=== PATIENT | female | born 1995 | race Caucasian/White ===

== ENCOUNTER 2020-12-27 18:39 | Emergency (ER) | payer OTHER, SELFPAY ==
[2020-12-27 19:01] VITALS: BP 126/86; PULSE 120; RESP 12; TEMP 37.4; O2SAT 100
--- NOTE | 2020-12-27 19:11 | PC.NURSE ---
pt. given Your Rights and Choices For a Medical Forensic exam.
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
--- NOTE | 2020-12-27 19:45 | PC.NURSE ---
Call for help advocate arrived. Pt declined call for help advocate at this time.
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
[2020-12-27] MEDS: metroNIDAZOLE 250 MG TABLET 2000 MG PO (21:08)
[2020-12-27] MEDS: cefTRIAXone 1 GM VIAL 0.5 GM IM (21:08)
[2020-12-27] MEDS: DOXYCYCLINE HYCLATE 100 MG TABLET PO (21:08)
[2020-12-27] MEDS: LIDOCAINE HCL 1% LOCAL INJ 20 ML VIAL 2.1 ML XX (21:08)
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
[2020-12-27 21:35] VITALS: BP 133/86; PULSE 108; RESP 18; O2SAT 99
[2020-12-27 21:41] LABS: Amphetamine Screen Urine Negative (Negative); Barbiturate Screen Urine Negative (Negative); Benzodiazepines Screen Urine Negative (Negative); Cannabinoid Screen Urine Negative (Negative); Cocaine Screen Urine Negative (Negative); Methadone Screen Urine Negative (Negative); Opiate Screen Urine Negative (Negative); Phencyclidine Screen Urine Negative (Negative)
[2020-12-27 22:01] VITALS: BP 122/84; PULSE 108; RESP 17; O2SAT 100
== END 2020-12-27 22:01 | disposition home or self-care (01) ==
PROVIDERS: Emergency Provider Emergency Medicine
DX: T74.21XA Adult sexual abuse, confirmed, initial encounter (principal); Y07.59 Other non-family member, perpetrator of maltreatment and neglect
CPT/HCPCS: 80307; 96372; 99285; A9270; J0696

== ENCOUNTER 2021-03-31 12:32 | Emergency (ER) | payer BC, SELFPAY ==
--- NOTE | 2021-03-31 12:42 | ED.FEMALEGU ---
HPI - Female Genitourinary General Chief complaint: Urogenital-Female Stated complaint: uti complaints Time Seen by Provider: 03/31/21 12:42 Source: patient and RN notes reviewed History of Present Illness HPI Narrative: Patient is a 26-year-old female who presents the urgent care with complaints of a possible UTI. Patient states that it started this morning with urinary frequency and pain with urination. Patient states that she has urinary tract infections often and has seen a urologist in the past without diagnosis. Patient did take her last dose of Azo at approximately 3 AM. Denies of any fever, chills, nausea, vomiting. Reports her last UTI being approximately 8 or 9 months ago. No other acute complaints. No acute distress noted. Patient aware of the plan of care. Some parts of this dictation were generated by voice recognition software and may contain typographical and/or grammatical inaccuracies. Related Data Home Medications Medication Instructions Recorded Confirmed norethindrone-e.estradiol-iron 1 tablet PO DAILY 03/31/21 03/31/21 [Minastrin 24 Fe] Allergies Allergy/AdvReac Type Severity Reaction Status Date / Time No Known Allergies Allergy Verified 03/31/21 12:57 Review of Systems Review of Systems: CONSTITUTIONAL: Denies fever, chills, or sweats. EYES: Denies visual changes, redness, or discharge. ENT: Denies rhinorrhea, congestion, sore throat, or otalgia. CARDIOVASCULAR: Denies chest pain, palpitations, or edema. RESPIRATORY: Denies cough or dyspnea. GASTROINTESTINAL: Denies abdominal pain, nausea, vomiting, or diarrhea. GENITOURINARY: Reports of dysuria and urinary frequency SKIN: Denies rash or itching. MUSCULOSKELETAL: Denies back pain, joint pain, or myalgia. NEUROLOGIC: Denies headache, numbness, or weakness. All other systems reviewed are negative, except as documented in HPI. PMFSH Comments At the time of my signature, I reviewed and agree with the nursing past medical, surgical, social, and family history. There is no relevant family history pertinent to the patient complaint. Exam Narrative: GENERAL: This is a well-nourished, well-developed patient, in no apparent distress. HEAD: normocephalic, atraumatic. EYES: PERRL. Sclera clear/white. Vision is grossly intact. EARS: External ears normal NOSE: External nose normal with no obvious nasal discharge, nares without redness, no rhinorrhea. THROAT: Mucous membranes moist NECK: Neck supple CARDIOVASCULAR: Regular rate and rhythm without murmurs, gallops, or rubs. RESPIRATORY: Clear to auscultation. Breath sounds equal bilaterally. No wheezes, rales, or rhonchi. GASTROINTESTINAL: Abdomen soft, mild suprapubic tenderness, nondistended. Bowel sounds are active. SKIN: warm, intact with no suspicious lesions or rash, good texture and turgor. NEURO: awake, alert, and oriented to person, place and time. There were no obvious focal neurologic abnormalities. EXTREMITIES: No clubbing, cyanosis, or edema. BACK: Negative bilateral CVA tenderness Course Vital Signs Vital signs: Vital Signs Temperature 98 F 03/31/21 12:57 Pulse Rate 100 03/31/21 12:57 Respiratory Rate 16 03/31/21 12:57 Blood Pressure 127/80 03/31/21 12:57 Pulse Oximetry 100 03/31/21 12:57 Temperature 98 F 03/31/21 12:58 Pulse Rate 100 03/31/21 12:58 Respiratory Rate 16 03/31/21 12:58 Blood Pressure 127/80 03/31/21 12:58 Pulse Oximetry 100 03/31/21 12:58 Reviewed MDM - Female Genitourinary MDM Narrative Medical decision making narrative: Reviewed lab results with the patient. She is aware that urine analysis does show nitrates as well as trace leukocytes which may indicate infection. Considering you have a history of recurrent UTIs, will treat with antibiotics. We will culture the urine and call if medication needs to be changed, based on culture results. However, advised patient to call and check on the urine if you do not hear back in
[2021-03-31 12:57] VITALS: BP 127/80; PULSE 100; RESP 16; TEMP 36.6; O2SAT 100
[2021-03-31 12:58] VITALS: BP 127/80; PULSE 100; RESP 16; TEMP 36.6; O2SAT 100
== END 2021-03-31 13:17 | disposition home or self-care (01) ==
PROVIDERS: Emergency Provider Nurse Practitioner Family
DX: N39.0 Urinary tract infection, site not specified (principal)
CPT/HCPCS: 81003; 87077; 87086; 87088; 87186; 99213; G0463

== ENCOUNTER 2021-07-26 12:21 | Emergency (ER) | payer BC, SELFPAY ==
[2021-07-26 13:20] VITALS: BP 144/83; PULSE 110; RESP 18; TEMP 37; O2SAT 100
--- NOTE | 2021-07-26 14:05 | ED.FEMALEGU ---
HPI - Female Genitourinary General Chief complaint: Urogenital-Female Stated complaint: uti complaint Time Seen by Provider: 07/26/21 14:05 Source: patient, RN notes reviewed and old records reviewed Mode of arrival: ambulatory Limitations: no limitations History of Present Illness HPI Narrative: 26 year old female presents to [facility] care with complaints of burning with urination and blood noted in urine with suprapubic pain that started yesterday. She reports that she was treated 3 weeks ago with Macrobid does not feel like her symptoms resolved , Patient denies any fevers chills or sweats, no nausea or vomiting, no vaginal discharge or itching, denies any concern for STD's.Patient has been COVID vaccinated but has not had flu shot MD elicited complaint: dysuria, UTI and other (Suprapubic pain) Related Data Home Medications Medication Instructions Recorded Confirmed norethindrone-e.estradiol-iron 1 tablet PO DAILY 12/27/20 [Minastrin 24 Fe] Allergies Allergy/AdvReac Type Severity Reaction Status Date / Time cephalexin [From Keflex] Allergy Hives Verified 07/26/21 13:26 Review of Systems Review of Systems: CONSTITUTIONAL: Denies fever, chills, or sweats. EYES: Denies visual changes, redness, or discharge. ENT: Denies rhinorrhea, congestion, sore throat, or otalgia. CARDIOVASCULAR: Denies chest pain, palpitations, or edema. RESPIRATORY: Denies cough or dyspnea. GASTROINTESTINAL:Reports suprapubic abdominal pain, no nausea, vomiting, or diarrhea. GENITOURINARY: Positive for dysuria or hematuria. SKIN: Denies rash or itching. MUSCULOSKELETAL: Denies back pain, joint pain, or myalgia. NEUROLOGIC: Denies headache, numbness, or weakness. PSYCHIATRIC: Denies anxiety or depression. All systems reviewed & are unremarkable except as noted in HPI and below PMFSH Past Medical History Medical History (Updated 07/27/21 @ 00:49 by Arlene Young NP) UTI (urinary tract infection) Surgical History Surgical History (Updated 07/27/21 @ 00:49 by Arlene Young NP) S/P wisdom tooth extraction Social History Social History Smoking status: Never smoker Comments At time of signature, agree with nursing past medical, surgical, social and family history. There is no relevant family history pertinent to the presenting complaint Exam Narrative: GENERAL: Well-appearing, well-nourished, and in no acute distress. HEAD: Normocephalic, atraumatic. EYES: PERRLA and EOMI. ENT: Nares clear, no rhinorrhea or epistaxis. Mucous membranes moist.TM's normal, throat pink with no lesions or exudates or tonsil enlargement NECK: Supple.no lymphadenopathy CHEST: Clear to auscultation. No respiratory distress.SAO2 100% on room air, HEART: Regular rate and rhythm. No murmur heard. Normal peripheral pulses. ABDOMEN: Soft, tender over suprapubic region of abdomen, no McBurney point tenderness nondistended, normal active bowel sounds.No CVA tenderness on examination EXTREMITIES: Normal range of motion. No edema. SKIN: Warm, dry, no rash. NEURO: No focal deficits. Alert and oriented x3. Course Course Level of Care: Express Care Visit Vital Signs Vital signs: Vital Signs Temperature 37.0 C 07/26/21 13:20 Pulse Rate 110 H 07/26/21 13:20 Respiratory Rate 18 07/26/21 13:20 Blood Pressure 144/83 H 07/26/21 13:20 Pulse Oximetry 100 07/26/21 13:20 Temperature 37.0 C 07/26/21 13:20 Pulse Rate 110 H 07/26/21 13:20 Respiratory Rate 18 07/26/21 13:20 Blood Pressure 144/83 H 07/26/21 13:20 Pulse Oximetry 100 07/26/21 13:20 MDM - Female Genitourinary Differential Diagnosis Differential diagnosis: Likely urinary tract infection, cervicitis, cystitis and other (Dysuria) Medical Records Attestation: I reviewed the patient's medical records. Lab Data Attestation: I reviewed the patient's lab results. Lab results narrative: Urine dip glucose trace, bilirubin
== END 2021-07-26 14:21 | disposition home or self-care (01) ==
PROVIDERS: Emergency Provider Registered Nurse
DX: N39.0 Urinary tract infection, site not specified (principal)
CPT/HCPCS: 81003; 87077; 87086; 87186; 99213; G0463

== ENCOUNTER 2022-09-23 08:08 | Emergency (ER) | payer BC, SELFPAY ==
[2022-09-23 08:17] VITALS: BP 119/83; PULSE 87; RESP 16; TEMP 36.9; O2SAT 100
[2022-09-23 08:18] VITALS: BP 119/83; PULSE 87; RESP 16; TEMP 36.9; O2SAT 100
--- NOTE | 2022-09-23 08:29 | ED.FEMALEGU ---
HPI - Female Genitourinary General Chief complaint: Urogenital-Female Stated complaint: possible uti Time Seen by Provider: 09/23/22 08:21 Source: patient and RN notes reviewed Mode of arrival: ambulatory Limitations: no limitations History of Present Illness HPI Narrative: Presents today with a 1 month history of dysuria and urinary frequency with occasional suprapubic pain. She also had hematuria last week. Three days ago she got off a course of Macrobid that was prescribed by telemedicine visit. Denies fever or any additional symptoms. She has also been taking azo with some relief. Related Data Allergies Allergy/AdvReac Type Severity Reaction Status Date / Time cephalexin [From Keflex] Allergy Hives Verified 09/23/22 08:17 Review of Systems Review of Systems: CONSTITUTIONAL: Denies body aches, fever, chills, or sweats. EYES: Denies visual changes, redness, or discharge. ENT: Denies rhinorrhea, congestion, sore throat, or otalgia. CARDIOVASCULAR: Denies chest pain, palpitations, or edema. RESPIRATORY: Denies cough or dyspnea. GASTROINTESTINAL: Denies nausea, vomiting, or diarrhea. GENITOURINARY: + dysuria, frequency, suprapubic pain SKIN: Denies rash, itching, or wounds. MUSCULOSKELETAL: Denies back pain, joint pain, or myalgia. NEUROLOGIC: Denies headache, numbness, tingling, or weakness. PSYCH: Denies depression or anxiety. [facility] Past Medical History Medical History UTI (urinary tract infection) Surgical History Surgical History S/P wisdom tooth extraction Social History Social History Smoking status: Never smoker Comments At time of signature, I have reviewed and agree with nursing past medical, surgical, social and family history unless otherwise noted. Please see nursing chart for further information. There is no relevant family history pertinent to the presenting complaint Exam Narrative: GENERAL: Well-appearing, well-nourished, and in no acute distress. HEAD: Normocephalic, atraumatic. EYES: EOMI. No redness or drainage. Conjunctivae normal. ENT: Mucous membranes pink and moist. NECK: Normal AROM. CHEST: No respiratory distress. Clear to auscultation. HEART: Regular rate and rhythm. No murmur appreciated. Normal peripheral pulses. ABDOMEN: Soft, nondistended, normal active bowel sounds. Mild suprapubic tenderness.-CVAT EXTREMITIES: Normal range of motion. No edema. SKIN: Warm, dry, no rash. Capillary refill normal. Normal skin turgor. NEURO: No focal deficits. Alert and oriented x3. Gait steady. PSYCH: Normal affect. No signs of depression or anxiety. Course Course Level of Care: Express Care Visit Vital Signs Vital signs: Vital Signs Temperature 98.4 F 09/23/22 08:17 Pulse Rate 87 09/23/22 08:17 Respiratory Rate 16 09/23/22 08:17 Blood Pressure 119/83 09/23/22 08:17 Pulse Oximetry 100 09/23/22 08:17 Oxygen Delivery Room Air 09/23/22 08:17 Temperature 98.4 F 09/23/22 08:18 Pulse Rate 87 09/23/22 08:18 Respiratory Rate 16 09/23/22 08:18 Blood Pressure 119/83 09/23/22 08:18 Pulse Oximetry 100 09/23/22 08:18 Oxygen Delivery Room Air 09/23/22 08:18 Reviewed. Pt has been instructed to follow up with her PCP regarding her elevated blood pressure today. MDM - Female Genitourinary MDM Narrative Medical decision making narrative: Even though patient's urinalysis is negative, she continues to have symptoms, even after a course of Macrobid. Will send her urine off for culture and treat her with 3 days of Bactrim. Anticipatory guidance given. Differential Diagnosis Differential diagnosis: Likely urinary tract infection, cystitis and other (Interstitial cystitis, pyelonephritis) Lab Data Attestation: I reviewed the patient's lab results. Labs:
== END 2022-09-23 08:36 | disposition home or self-care (01) ==
PROVIDERS: Emergency Provider Nurse Practitioner
DX: R30.0 Dysuria (principal)
CPT/HCPCS: 81003; 87077; 87086; 87088; 99213; G0463

== ENCOUNTER 2024-11-02 15:22 | Emergency (ER) | payer OTHER, SELFPAY ==
--- OUTSIDE RECORDS SUMMARY | 2024-11-02 15:25 | XMS_ITS | Clinical Summary ---
Author Organization [facility] Address [facility] [place] [address] Care Team Providers Care Escrow Clerk Name Role Phone Lore Reich MD Primary Care Provider Allergies Active Allergy Reactions Criticality Noted Date Comments Cephalexin Hives Medium 06/01/2019 Medications Multiple Vitamins-Minerals (MULTI COMPLETE OR) Active Active Problems Problem Noted Date Diagnosed Date Heart murmur, systolic 08/28/2024 Encounters Date Type Department Care Team Description 10/23/2024 8:40 AM CDT Office Visit [address] [phone] Lore Reich MD Lab Results 10/23/2024 Orders Only [address] [address] Lore Reich MD 10/23/2024 Travel 10/03/[address] [address] Lore Reich MD Results 09/27/2024 7:00 AM CDT - 09/27/2024 11:59 PM CDT Hospital Encounter [facility] [place] [address] Lore Reich MD Discharge Disposition: Home or Self Care (Routine Discharge) 09/27/2024 Travel 09/12/2024 Orders Only [facility], [address] [address] Lore Reich MD 08/28/2024 10:20 AM CDT Office Visit [address] [phone] Lore Reich MD New Patient (Pt arrives today to establish care. ) 08/28/2024 Orders Only [address] [phone] Lore Reich MD 08/28/2024 Travel from Last 3 Months Immunizations Immunization Administration Dates Next Due Dtap (Generic) 08/06/2002, 9,1997,08/11,1997 HPV GARDASIL 9-VALENT 12/23/2019,12/15/2015 Hepatitis A (Generic) 11/24/2008,11/15/2007 Hepatitis B 1997,1997,1997 Hib (Generic) 08/28/1998, 8,1997,06/13 Influenza Adult (Generic) 03/31/2022 MMR (MMRII) 08/06/2002,08/28/1998 Meningococcal (Menactra) 12/01/2014,11/04/2011 PFIZER COVID-19 (ORIGINAL FO RMULATION, PURPLE CAP) mRNA, LNP-S, PF, 30 MCG/0.3 ML DOSE 05/10/2021,08/18/2020,07/28/2020 Polio Opv (Generic) 08/06/2002, 8,1997,06/13 Tdap (Generic) 12/23/2019,11/15/2007 Social History Tobacco Use Types Packs/Day Years Used Date Smoking Tobacco: Never Smokeless Tobacco: Never Tobacco Cessation:Counseling Given: Yes Alcohol Use Standard Drinks/Week Comments Yes 5.3 (1 standard drink = 0.6 oz p ure alcohol) PHQ-2 Answer Date Recorded Patient Health Questionnaire-2 Score 0 10/23/2024 Comments No Sex and Gender Information Value Date Recorded Sex Assigned at Female 10/14/2024 12:43 PM CDT Legal Sex Female 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 Gender Identity Not on file Sexual Orientation Not on file Last Filed Vital Signs Vital Sign Reading Time Taken Comments Blood Pressure 110/74 10/23/2024 8:32 AM CDT Pulse 75 10/23/2024 8:32 AM CDT Temperature 36.7 C (98.1 F) 10/23/2024 8:32 AM CDT Respiratory Rate 18 10/23/2024 8:32 AM CDT Oxygen Saturation 100% 10/23/2024 8:32 AM CDT Inhaled Oxygen Concentration - - Weight 67.9 kg (149 lb 12.8 oz) 10/23/2024 8:32 AM CDT Height 165.1 cm (5' 5) 10/23/2024 8:32 AM CDT Body Mass Index 24.93 10/23/2024 8:32 AM CDT Plan of Treatment Upcoming Encounters Date Type Department Care Team (Late st Contact Info) Description 11/11/2024 11:00 AM CDT Office Visit [facility] [address] [place] [address] Lore Reich MD [address] [place] [address] Health Maintenance Due Date Last Done Comments Pneumococcal Vaccine: Pediatrics (0 to 5 Years) and At-Risk Patients (6 to 49 Years) (1 of 2 - PCV) 2016 HPV Vaccines (3 - 3-dose series) 03/16/2020 12/23/2019, 12/15/2015 Annual Physical 08/28/2025 08/28/2024 COVID-19 Vaccine ( season) 2025 05/10/2021, 08/18/2020, 07/28/2020 Postponed from 12/31/2023 (Patient Refused) Cervical Cancer Screening Pap Smear (Age 21 to 29) Every 3 Years 08/12/2027 Cervical Cancer Screening 08/12/2027 DTaP, Tdap and Td Vaccines (8 - Td or Tdap) 12/22/2029 12/23/2019, 11/15/2007, 08/06/2002, Additional history exists Hepatitis B Vaccines Completed 1997, 1997, 1997 Meningococcal Vaccine Completed 12/01/2014, 012 Hepatitis C Completed 08/28/2024 PHQ-2 (Physician [place]) Completed 10/23/2024 Meningococcal B Vaccine Aged Out No l onger eligible based on patient's age to complete this topic RSV Immunizations Under 20 Months Aged Out No longer eligible based on patient's age to complete this topic Procedures Procedure Name Priority Date/Time Associated Diagnosis Comments VARICELLA ZOSTER IGG Routine 10/23/2024 10:38 AM CDT USE ECHOCARDIOGRAM Routine 09/27/2024 7: 31 AM CDT Heart murmur, systolic HEPATITIS C ANTIBODY W/RFX TO HCV RNA Routine 08/28/2024 11:21 AM CDT CBC W/DIFF AUTOMATED Routine 08/28/2024 11:21 AM CDT COMPREHENSIVE METABOLIC PANEL Routine 08/28/2024 11:21 AM CDT LIPID PANEL Routine 08/28/2024 11:21 AM CDT HEMOGLOBIN, GLYCOSYLATED Routine 08/28/2024 Encounter for medical examination to establish care COLLECT.CAPILLARY (FNGR,HEEL,EAR) Routine 08/28/2024 Encounter for medical examination to establish care from Last 3 Months Results * VARICELLA ZOSTER IGG (10/23/2024 10:38 AM CDT) [facility] VARICELLA ZOSTER IGG EIA 10.60 S/CO [facility] Comment: Signal to Cut-off S/CO Interpretation --------- <1.00 Negative - Antibody not detected > or = 1.00 Positive - Antibody detected A positive result indicates that the patient has antibody to VZV but does not differentiate between an active or past infection. The clinical diagnosis must be interpreted in conjunction with the clinical signs and symptoms of the patient. This assay reliably measures immunity due to previous infection but may not be sensitive enough to detect antibodies induced by vaccination. Thus, a negative result in a vaccinated individual does not necessarily indicate susceptibility to VZV infection. A more sensitive test for vaccination-induced immunity is Varicella Zoster Virus Antibody Immunity Screen, ACIF. 10/23/2024 10:3 8 AM CDT 10/23/2024 10:39 AM CDT Narrative Resulting Agency Comment Performing Organization Information: Site ID: [id number] Name: [facility] Address: [address] [facility] [place] [address] Director: Zeenat Patrick MD Lore Reich MD LABORATORY Final Result [facility] SH[facility] [address] [facility] [place] [address], * USE ECHOCARDIOGRAM (09/27/2024 7:31 AM CDT) Anatomical Region Laterality Modality Cardiac Echocardiogram 09/27/2024 7:08 AM CDT Narrative 09/29/2024 6:20 AM CDT Echocardiography Report Pat.Name: YOST TIMUR ORTEGAJaison.ID: [id number] .Date: 09/27/2024 Exam Time: 7:08:00 AM Study Type:ECHO WITH CARDIAC DOPPLER COMP Height: 65 in Weight: 147 lb BSA: 1.74 m2 Age: 11 1995,29Y Sex: F BP: 97/61 Sonogrphr: Kathy Severino Pat. Stat.:Outpatient CPT - 4: [id number] Reason for Study:Systolic Murmur Procedures: 2D, M-mode, Doppler, Color Flow, The study quality is technically adequate. Race: W ++++++++++++++++++++++++++++++++++++ SUMMARY: ++++++++++++++++++++++++++++++++++++ The left ventricular size is normal. The left ventricular systolic function is normal. Estimated left ventricular ejection fraction is 60-65%. Wall motion appears normal in all segments. The right ventricular size is normal. TAPSE = 24.8mm (<16 mm indicates systolic RV dysfunction). The left atrial volume is normal ( less than 34 ml/M2). The right atrial size is normal. Inferior vena cava shows >50% collapse with respiration consistent with normal right atrial pressure. No valvular disease. ++++++++++++++++++++++++++++++++++++ FINDINGS: ++++++++++++++++++++++++++++++++++++ LV: The left ventricular size is normal. The left ventricular systolic function is normal. Estimated left ventricular ejection fraction is 60-65%. No concentric left ventricular hypertrophy. The septal E/e' is normal at < 8. The lateral E/e' is normal at <8. Left ventricular diastolic function is normal. WM: Wall motion appears normal in all segments. RV: The right ventricular size is normal. Right ventricular systolic function is normal. TAPSE = 24.8mm (<16 mm indicates systolic RV dysfunction). IVS: No evidence of ventricular septal defect. LA: The left atrial volume is normal ( less than 34 ml/M2). RA: The right atrial size is normal. IAS: Atrial septum appears intact. RUBY: No evidence of pericardial effusion. AO: Normal aortic root. PA: Estimated right atrial pressure of 3 mmHg. SVn: Inferior vena cava is normal. Inferior vena cava shows >50% collapse with respiration consistent with normal right atrial pressure. AV: The aortic valve is trileaflet. No evidence of aortic valve stenosis. No evidence of aortic valve regurgitation. MV: No evidence of mitral regurgitation. No evidence of mitral stenosis. PV: No evidence of pulmonic valve stenosis. Mild pulmonic regurgitation. TV: Structurally normal tricuspid valve. A trace of tricuspid regurgitation. No evidence of tricuspid valve stenosis. ++++++++++++++++++++++++++++++++++++ MEASUREMENTS: ++++++++++++++++++++++++++++++++++++ 2D Left Ventricle LVIDd 4.46 cm (3.6-5.2) LVEDV BP 68.1 ml LV EDV 86.8 ml LVESV BP 25.9 ml LV ESV 29.4 ml LV EF 66.1 % LV EDV 47.6 ml Left Ventricula -22.4 % LV ESV 21.1 ml LV EF 55.7 % LV EF BP 62 % Left Ventricula -16.3 % Left Ventricula -19.4 % Left Atrium Left Atrium Vol 14.6 ml/m2 LA Biplane Left Atrium Vol 25.4 ml LA Single Plane Left Atrium ila 4.48 cm Left Atrium ila 4.15 cm Left Atrium Vol 24.5 ml Left Atrium Vol 25 ml LV Teichholz Interventricula 0.9 cm Left Ventricle 2.5 cm Left Ventricle 0.74 cm Heart rate 114 Heart beat per minute Right Atrium RA sys Area 13.4 cm2 Right Ventricle Right Ventricul 2.76 cm RVIDd 3.36 cm MMODE Tricuspid Valve Tricuspid annul 2.48 cm DOPPLER Pulmonary Veins PVnpkVeld 69 cm/s Pulmonary Vein 0.61 m/s PVnVs/Vd 0.95 AR-wave velocit 0.24 m/s S1-wave velocit 0.65 m/s PVn A Dur 0.11 second PV Regurg Flow PV pkVel 80 cm/s Aortic Valve Cardiovascular 1.9 cm Aortic Root Gilda 2.71 cm LVOT/AoV (JALOUSIE INSTALLER) ( 0.55 Left atrial gilda 2.85 cm AV Antegrade Flow Peak Velocity ( 1.46 m/s Mean Velocity ( 1.1 m/s Velocity Time I 28.9 cm AV Antegrade Flow Simplified Bernoulli Gradient pressu 8.5 mmHg Gradient pressu 5.1 mmHg AV Continuity Equation by Velocity Time Integral Aortic Valve Ar 1.58 cm2 AoV Area Index 0.91 Left Ventricle Stroke Volume ( 45.6 ml Cardiac Output 3.47 liter per minute LV Antegrade Flow Peak Velocity ( 0.81 m/s Mean Velocity ( 0.56 m/s Velocity Time I 16.1 cm LV Antegrade Flow Simplified Bernoulli Gradient pressu 2.6 mmHg Gradient pressu 1.4 mmHg Mitral Valve Mitral Valve E- 0.15 second Mean Myocardial 15.5 centimeter/second Myocardial Velo 17.9 centimeter/second Ratio of Mitral 7.94 Myocardial Velo 13.2 centimeter/second Ratio of Mitral 6.88 Mitral Valve E 2.43 Ratio of Mitral 9.33 MV Antegrade Flow Mitral Valve E- 1.23 m/s Mitral Valve A- 0.51 m/s PV Antegrade Flow Peak Velocity ( 1.02 m/s Mean Velocity ( 0.69 m/s Velocity Time I 20.5 cm PV Antegrade Flow Simplified Bernoulli Gradient pressu 4.1 mmHg Gradient pressu 2.1 mmHg PV Regurgitant Flow Pressure gradie 2.6 mmHg TV Regurgitant Flow MaximumTricuspi 1.07 m/s MaximumTricuspi 4.6 mmHg <Electronic Signature> 09/29/2024 06:20 AM Fito Richard M.D. Procedure Note Fito Richard MD - 09/29/2024 Echocardiography Report Pat.Name: TIMUR YOST.ID: [id number] .Date: 09/27/2024 Exam Time: 7:08:00 AM Study Type:ECHO WITH CARDIAC DOPPLER COMP Height: 65 in Weight: 147 lb BSA: 1.74 m2 Age: 11 1995,29Y Sex: F BP: 97/61 Sonogrphr: Kathy Severino Pat. Stat.:Outpatient CPT - 4: [id number] Reason for Study:Systolic Murmur Procedures: 2D, M-mode, Doppler, Color Flow, The study quality is technically adequate. Race: W ++++++++++++++++++++++++++++++++++++ SUMMARY: ++++++++++++++++++++++++++++++++++++ The left ventricular size is normal. The left ventricular systolic function is normal. Estimated left ventricular ejection fraction is 60-65%. Wall motion appears normal in all segments. The right ventricular size is normal. TAPSE = 24.8mm (<16 mm indicates systolic RV dysfunction). The left atrial volume is normal ( less than 34 ml/M2). The right atrial size is normal. Inferior vena cava shows >50% collapse with respiration consistent with normal right atrial pressure. No valvular disease. ++++++++++++++++++++++++++++++++++++ FINDINGS: ++++++++++++++++++++++++++++++++++++ LV: The left ventricular size is normal. The left ventricular systolic function is normal. Estimated left ventricular ejection fraction is 60-65%. No concentric left ventricular hypertrophy. The septal E/e' is normal at < 8. The lateral E/e' is normal at <8. Left ventricular diastolic function is normal. WM: Wall motion appears normal in all segments. RV: The right ventricular size is normal. Right ventricular systolic function is normal. TAPSE = 24.8mm (<16 mm indicates systolic RV dysfunction). IVS: No evidence of ventricular septal defect. LA: The left atrial volume is normal ( less than 34 ml/M2). RA: The right atrial size is normal. IAS: Atrial septum appears intact. RUBY: No evidence of pericardial effusion. AO: Normal aortic root. PA: Estimated right atrial pressure of 3 mmHg. SVn: Inferior vena cava is normal. Inferior vena cava shows >50% collapse with respiration consistent with normal right atrial pressure. AV: The aortic valve is trileaflet. No evidence of aortic valve stenosis. No evidence of aortic valve regurgitation. MV: No evidence of mitral regurgitation. No evidence of mitral stenosis. PV: No evidence of pulmonic valve stenosis. Mild pulmonic regurgitation. TV: Structurally normal tricuspid valve. A trace of tricuspid regurgitation. No evidence of tricuspid valve stenosis. ++++++++++++++++++++++++++++++++++++ MEASUREMENTS: ++++++++++++++++++++++++++++++++++++ 2D Left Ventricle LVIDd 4.46 cm (3.6-5.2) LVEDV BP 68.1 ml LV EDV 86.8 ml LVESV BP 25.9 ml LV ESV 29.4 ml LV EF 66.1 % LV EDV 47.6 ml Left Ventricula -22.4 % LV ESV 21.1 ml LV EF 55.7 % LV EF BP 62 % Left Ventricula -16.3 % Left Ventricula -19.4 % Left Atrium Left Atrium Vol 14.6 ml/m2 LA Biplane Left Atrium Vol 25.4 ml LA Single Plane Left Atrium ila 4.48 cm Left Atrium ila 4.15 cm Left Atrium Vol 24.5 ml Left Atrium Vol 25 ml LV Teichholz Interventricula 0.9 cm Left Ventricle 2.5 cm Left Ventricle 0.74 cm Heart rate 114 Heart beat per minute Right Atrium RA sys Area 13.4 cm2 Right Ventricle Right Ventricul 2.76 cm RVIDd 3.36 cm MMODE Tricuspid Valve Tricuspid annul 2.48 cm DOPPLER Pulmonary Veins PVnpkVeld 69 cm/s Pulmonary Vein 0.61 m/s PVnVs/Vd 0.95 AR-wave velocit 0.24 m/s S1-wave velocit 0.65 m/s PVn A Dur 0.11 second PV Regurg Flow PV pkVel 80 cm/s Aortic Valve Cardiovascular 1.9 cm Aortic Root Gilda 2.71 cm LVOT/AoV (JALOUSIE INSTALLER) ( 0.55 Left atrial gilda 2.85 cm AV Antegrade Flow Peak Velocity ( 1.46 m/s Mean Velocity ( 1.1 m/s Velocity Time I 28.9 cm AV Antegrade Flow Simplified Bernoulli Gradient pressu 8.5 mmHg Gradient pressu 5.1 mmHg AV Continuity Equation by Velocity Time Integral Aortic Valve Ar 1.58 cm2 AoV Area Index 0.91 Left Ventricle Stroke Volume ( 45.6 ml Cardiac Output 3.47 liter per minute LV Antegrade Flow Peak Velocity ( 0.81 m/s Mean Velocity ( 0.56 m/s Velocity Time I 16.1 cm LV Antegrade Flow Simplified Bernoulli Gradient pressu 2.6 mmHg Gradient pressu 1.4 mmHg Mitral Valve Mitral Valve E- 0.15 second Mean Myocardial 15.5 centimeter/second Myocardial Velo 17.9 centimeter/second Ratio of Mitral 7.94 Myocardial Velo 13.2 centimeter/second Ratio of Mitral 6.88 Mitral Valve E 2.43 Ratio of Mitral 9.33 MV Antegrade Flow Mitral Valve E- 1.23 m/s Mitral Valve A- 0.51 m/s PV Antegrade Flow Peak Velocity ( 1.02 m/s Mean Velocity ( 0.69 m/s Velocity Time I 20.5 cm PV Antegrade Flow Simplified Bernoulli Gradient pressu 4.1 mmHg Gradient pressu 2.1 mmHg PV Regurgitant Flow Pressure gradie 2.6 mmHg TV Regurgitant Flow MaximumTricuspi 1.07 m/s MaximumTricuspi 4.6 mmHg <Electronic Signature> 09/29/2024 06:20 AM Fito Richard M.D. Lore Reich MD ECHO Final Result * HEPATITIS C ANTIBODY W/RFX TO HCV RNA (08/28/2024 11:21 AM CDT) Pathologist [facility] [place] HEPATITIS C AB NON-REACT SUZIE NON-REACT SUZIE [facility] Comment: HCV antibody was non-reactive. There is no laboratory evidence of HCV infection. In most cases, no further action is required. However, if recent HCV exposure is suspected, a test for HCV RNA (test code 92836) is suggested. For additional information please refer to http://education.[employer]faq/HEG73v2 (This link is being provided for informational/ educational purposes only.) 08/28/2024 11:2 1 AM CDT 08/28/2024 11:23 AM CDT Narrative [facility] - 08/29/2024 7:42 AM CDT FASTING:NO FASTING: NO Resulting Agency Comment Performing Organization Information: Site ID: [place] Name: [facility] Address: [address] [place] [id number] Director: Zeenat Patrick MD us Lore Reich MD LABORATORY Final Result [facility] - [facility] [employer] [facility] [id number] [place] [address] [place], [place] [address] * COMPREHENSIVE METABOLIC PANEL (08/28/2024 11:21 AM CDT) [facility] GLUCOSE 80 65 - 139 mg/dL [facility] Comment: Non-fasting reference interval BUN 15 7 - 25 mg/dL [facility] [employer] [facility] CREATININE S/P/B 0.63 0.50 - 0.96 mg/dL [facility] GFR ESTIMATE 125 > OR = 60 mL/min/1. 73m2 [employer] [facility] BUN CREATININE RATIO SEE NOTE: 6 - 22 (calc) [employer] [facility] Comment: Not Reported: BUN and Creatinine are within reference range. SODIUM S/P/B 138 135 - 146 mmol/L [facility] POTASSIUM S/P/B 4.3 3.5 - 5.3 mmol/L [facility] CHLORIDE S/P/B 103 98 - 110 mmol/L [facility] CO2 28 20 - 32 mmol/L [facility] [employer] [facility] CALCIUM S/P/B 9.8 8.6 - 10.2 mg/dL [facility] TOTAL PROTEIN S/P/B 7.4 6.1 - 8.1 g/dL [facility] ALBUMIN S/P/B 4.9 3.6 - 5.1 g/dL [facility] [employer] [facility] GLOBULIN 2.5 1.9 - 3.7 g/dL (calc) [employer] [facility] ALBUMIN/GLOBULI N RATIO 2.0 1.0 - 2.5 (calc) [facility] BILIRUBIN TOTAL S/P/B 0.5 0.2 - 1.2 mg/dL [facility] ALKALINE PHOSPHATASE S/P/B 63 31 - 125 U/L [facility] AST 13 10 - 30 U/L [facility] ALT 12 6 - 29 U/L [facility] 08/28/2024 11:2 1 AM CDT 08/28/2024 11:23 AM CDT Narrative [employer] - 08/29/2024 7:42 AM CDT FASTING:NO FASTING: NO Resulting Agency Comment Performing Organization Information: Site ID: [place] Name: [facility] Address: [address] [facility] [place] [address] Director: Zeenat Patrick MD Lore Reich MD LABORATORY Final Result [facility] - [facility] SHAY [facility] [address] [facility] [place] [address], * (ABNORMAL) LIPID PANEL (08/28/2024 11:21 AM CDT) CHOLESTEROL 189 <200 mg/dL [facility] HDL 58 > OR = 50 mg/dL [facility] TRIGLYCERIDES 110 <150 mg/dL [facility] LDL (CALCULATED) 109(H) mg/dL (calc) [facility] Comment: Reference range: <100 Desirable range <100 mg/dL for primary prevention; <70 mg/dL for patients with CHD or diabetic patients with > or = 2 CHD risk factors. LDL-C is now calculated using the Jimmy calculation, which is a validated novel method providing better accuracy than the Friedewald equation in the estimation of LDL-C. Alejandro KU et al. NILO. 2013;310(19): 8746-8866 (http://education.[employer]/faq/BUW330) CHOL/HDL RATIO 3.3 <5.0 (calc) [facility] NON HDL CHOLESTEROL 131(H) <130 mg/dL (calc) [facility] Comment: For patients with diabetes plus 1 major ASCVD risk factor, treating to a non-HDL-C goal of <100 mg/dL (LDL-C of <70 mg/dL) is considered a therapeutic option. 08/28/2024 11:2 1 AM CDT 08/28/2024 11:23 AM CDT Narrative [facility]I SHAY - 08/29/2024 7:42 AM CDT FASTING:NO FASTING: NO Resulting Agency Comment Performing Organization Information: Site ID: [place] Name: [facility] Address: [address] [facility] [place] [address] Director: Zeenat Patrick MD Lore Reich MD LABORATORY Final Result [facility] COLIN [facility] [facility] [address] [facility] [place] [address], * (ABNORMAL) CBC W/DIFF AUTOMATED (08/28/2024 11:21 AM CDT) [facility] WBC 7.9 3.8 - 10.8 Thousand/ uL [facility] RBC 4.65 3.80 - 5.10 Million/u L [facility] [employer] [facility] HGB 12.8 11.7 - 15.5 g/dL [facility] [place] HCT 40.7 35.0 - 45.0 % [facility] [place] MCV 87.5 80.0 - 100.0 fL [facility] [place] MCH 27.5 27.0 - 33.0 pg [facility] [place] MCHC 31.4(L) 32.0 - 36.0 g/dL [facility] Comment: For adults, a slight decrease in the calculated MCHC value (in the range of 30 to 32 g/dL) is most likely not clinically significant; however, it should be interpreted with caution in correlation with other red cell parameters and the patient's clinical condition. RDW 12.8 11.0 - 15.0 % [facility] PLT 288 140 - 400 Thousand/ uL [facility] MPV 9.4 7.5 - 12.5 fL [facility] [place] ABS. NEUTROPHILS 5,127 1,500 - 7,800 cells/uL [facility] ABS. LYMPHOCYTES 1,967 850 - 3,900 cells/uL [facility] ABS. MONOCYTES 632 200 - 950 cells/uL [facility] ABS. EOSINOPHILS 126 15 - 500 cells/uL [facility] ABS. BASOPHILS 47 0 - 200 cells/uL [facility] SEG NEUTROPHILS 64.9 % [facility] LYMPHOCYTES 24.9 % [facility] MONOCYTES 8.0 % [facility] [place] EOSINOPHILS 1.6 % [facility] [place] BASOPHILS 0.6 % [facility] 08/28/2024 11:2 1 AM CDT 08/28/2024 11:23 AM CDT Narrative [facility] - [facility] - 08/29/2024 7:42 AM CDT FASTING:NO FASTING: NO Resulting Agency Comment Performing Organization Information: Site ID: [place] Name: [facility]ett [facility] Address: [address] [address] Director: Zeenat Patrick MD Lore eRich MD LABORATORY Final Result [facility] [address] [place] [address], [place] * HEMOGLOBIN, GLYCOSYLATED (08/28/2024) Pathologist [facility] [place] HGB A1C 5.2 % [facility] 08/28/2024 us Lore Reich MD LABORATORY Final Result [facility] ALEX [address] [place] [address], [place] [phone] * COLLECT.CAPILLARY (FNGR,HEEL,EAR) (08/28/2024) us Lore Reich MD PROCEDURES-UNRESULTED Final Resu lt [facility] - [facility] from Last 3 Months Insurance Care Teams Escrow Clerk Relationship Specialty Start Date End Date Lore Reich MD [address] [place] [address] PCP - General FAMILY PRACTICE 08/28/24
--- OUTSIDE RECORDS SUMMARY | 2024-11-02 15:25 | XMS_ITS | Clinical Summary ---
Author Organization [facility] [place] [facility] lt Address [address] k[address] [facility] [place] [address] Care Team Providers Care Pier Runner Name Role Phone Nava Ariza NP Primary Care Provider + [phone] Allergies Active Allergy Reactions Criticality Noted Date Comments Cephalexin Hives Medium 06/01/2019 Medications No known medications Active Problems Problem Noted Date Diagnosed Date Acute cystitis with hematuria 01/17/2020 Assessment & Plan (01/30/2020 1:46 PM CDT): Recurrent. [facility] urine + for trace LE and trace blood. WBC 0-5. No bacteria- otherwise neg. Will tx empirically and f/u cx. Pt should call back in a few days to follow up on cx and sx improvement. Trated with Augmentin and Bactrim a few times recently and UTI came back. Will tx with macrobid at this time. Fatigue 12/23/2019 Assessment & Plan (12/26/2019 8:27 AM CDT): Initial lab w/u neg. BG slightly elevated with h/o glucose in urine 6 mo ago- will get A1C and screen for mono. F/u cards. Advise to start regular exercise in the mornings 5 days a week. Assessment & Plan (12/23/2019 3:02 PM CDT): X1 year. Will obtain lab workup and follow-up with her. Encounter for preventive health examination 11/30 Assessment & Plan (12/23/2019 3:01 PM CDT): Chronic conditions reviewed. Patient is not up to date. Following tests ordered:, HPV vaccine Counseled on goal BMI, healthy diet & lifestyle, and advise moderate CV exercise 150 min/wk or high-intensity exercise 75 min/wk. Murmur 12/23/2019 Overview (12/23/2019): Refer to cariology. 24 y/o F with new onset murmur, lightheadedness and fatigue Immunizations Immunization Administration Dates Next Due DTaP, Unspecified 08/06/2002, 9,1997,08/11,1997 HPV9 12/23/2019,12/15/2015 Hep A, Unspecified 11/24/2008,11/15/2007 Hep B, Unspecified 1997,1997, 997 HiB 08/28/1998, 8,1997,06/13 Influenza, Quadrivalent, Denise l Culture-based MDCK, Preservative Free, Antibiotic Free, Intramuscular 03/31/2022 Influenza, Unspecified 05/15/2023(Deferr ed: Patient Refused),04/10/2023(Deferred: Patient Refused) MMR 08/06/2002,08/28/1998 Meningococcal MCV4P (Menactra) 12/01/2014,2011 Polio, Unspecified 08/06/2002, 8,1997,06/13 Tdap 12/23/2019,11/15/2007 Surgical History Surgery Date Site/Laterality Comments WISDOM TOOTH EXTRACTION 11/29/2016 - 12/29/2016 Medical History Medical History Date Comments UTI (urinary tract infection) Family History Medical History Relation Name Comments No Known Problems Father No Known Problems Mother Relation Name Status Comments Father Alive Mother Alive Social History Tobacco Use Types Packs/Day Years Used Date Smoking Tobacco: Never Smokeless Tobacco: Never Alcohol Use Standard Drinks/Week Comments Yes 0 (1 standard drink = 0.6 oz pur e alcohol) Socially AUDIT-C Answer Date Recorded Q1: How often do you have a drink containing alc ohol? 2-4 times a month 05/15/2023 Q2: How many drinks containi ng alcohol do you have on a typical day when you are drinking? 1 or 2 05/15/2023 Q3: How often do you have si x or more drinks on one occasion? Never 05/15/2023 PHQ-2 Answer Date Recorded PHQ-2 Total Score (If total score is 3 or more points, staff should administer the PHQ-9) 0 05/15/2023 Personal Safety Answer Date Recorded Getting School Help Needed Not on file 05/12 Comments Unknown Sex and Gender Information Value Date Recorded Sex Assigned at Not on file Legal Sex Female 8:45 PM WIRE WORKER Gender Identity Not on file Sexual Orientation Not on file Obstetrics History Last Filed Vital Signs Vital Sign Reading Time Taken Comments Blood Pressure 112/78 05/15/2023 10:34 AM WIRE WORKER Pulse 104 12/23/2019 2:13 PM CDT Temperature 36.4 C (97.6 F) 05/15/2023 10:34 AM WIRE WORKER Respiratory Rate 16 12/23/2019 2:13 PM CDT Oxygen Saturation 99% 12/23/2019 2:13 PM CDT Inhaled Oxygen Concentration - - Weight 70.1 kg (154 lb 8 oz) 05/15/2023 10:34 AM WIRE WORKER Height 165.1 cm (5' 5) 05/15/2023 10:34 AM WIRE WORKER Body Mass Index 25.71 05/15/2023 10:34 AM WIRE WORKER Plan of Treatment Health Maintenance Due Date Last Done Comments Hepatitis C Screening 1997 HPV Vaccines (3 - 3-dose series) 03/16/2020 12/23/2019, 12/15/2015 Regular Well Visit/Exam 18-64 12/22/2020 12/23/2019, 12/23/2019 Covid-19 Vaccine ( season) 2023 05/10/2021, 08/18/2020, 07/28/2020 Cervical Cancer Screening 04/04/2024 04/04/2019 Depression Screening 05/15/2024 05/15/2023, 05/15/2023, 12/23/2019 Influenza Vaccine (#1) 2024 03/31/2022 DTaP/Tdap/Td Vaccine (8 - Td or Tdap) 12/22/2029 12/23/2019, 11/15/2007, 08/06/2002, Additional history exists Hepatitis B Screening Completed 1997 , 1997, 1997 Pneumococcal vaccine <65 Aged Out No longer eligible based on patient's age to complete this topic Varicella Vaccines Discontinued Procedures Procedure Name Priority Date/Time Associated Diagnosis Comments PAP SMEAR WITH HPV Routine 04/04/2019 from Last 3 Months or Most Recently Relevant to Health Maintenance Results * PAP SMEAR WITH HPV (04/04/2019) HM Pap smear Normal us Nery Donis MD HEALTH MAINTENANCE Final Result from Last 3 Months or Most Recently Relevant to Health Maintenance [place] Care Teams Pier Runner Relationship Specialty Start Date End Date Nava Ariza NP [address] [facility] [address] [place] [address] PCP - General Infectious Diseases 05/15/23
--- OUTSIDE RECORDS SUMMARY | 2024-11-02 15:25 | XMS_ITS | Referral Summary ---
Author Organization [facility] [place] [facility] lt Address [address] [place] [address] Care Team Providers Care Production Packager Name Role Phone Nava Ariza NP Primary Care Provider + [phone] Allergies Active Allergy Reactions Criticality Noted Date [...] 12/01/2014,2011 Polio, Unspecified 08/06/2002, 8,1997,06/13 Tdap 12/23/2019,11/15/2007 Social History Tobacco Use Types Packs/Day [...] on file Legal Sex Female 8:45 PM AIRLINE CUSTOMER SERVICE AGENT Gender Identity Not on file Sexual Orientation Not on file Last Filed Vital Signs Vital Sign Reading Time Taken Comments Blood Pressure 112/78 05/15/2023 10:34 AM AIRLINE CUSTOMER SERVICE AGENT Pulse 104 12/23/2019 2:13 PM CDT Temperature 36.4 C (97.6 F) 05/15/2023 10:34 AM AIRLINE CUSTOMER SERVICE AGENT Respiratory Rate 16 12/23/2019 2:13 PM CDT Oxygen Saturation 99% 12/23/2019 2:13 PM CDT Inhaled Oxygen Concentration - - Weight 70.1 kg (154 lb 8 oz) 05/15/2023 10:34 AM AIRLINE CUSTOMER SERVICE AGENT Height 165.1 cm (5' 5) 05/15/2023 10:34 AM AIRLINE CUSTOMER SERVICE AGENT Body Mass Index 25.71 05/15/2023 10:34 AM AIRLINE CUSTOMER SERVICE AGENT Plan of Treatment Not on file Procedures Procedure Name Priority Date/Time Associated Diagnosis Comments PAP SMEAR WITH HPV Routine 04/04/2019 from Last 3 Months or Most Recently Relevant to Health Maintenance Results * PAP SMEAR WITH HPV (04/04/2019) Pap smear Normal Nery Donis MD HEALTH MAINTENANCE Final Result from Last 3 Months or Most Recently Relevant to Health Maintenance [place] Care Teams Production Packager Relationship Specialty Start Date End Date Nava Ariza NP [address] [facility] [address] [place] [address] PCP - General Infectious Diseases 05/15/23
--- OUTSIDE RECORDS SUMMARY | 2024-11-02 15:31 | XMS_ITS | Clinical Summary ---
Author Organization [facility] Address [address] [place] [address] Phone Care Team Providers Care Access Clinician Name Role Phone Edmond Dash DO Primary Care Provider [phone] Allergies Active Allergy Reactions Criticality Noted Date Comments Cephalexin Hives Medium 06/01/2019 Medications Norethin Barrie-Eth Estrad-FE 1-20 MG-MCG(24) Chewable Tablet Take 20 mcg by mouth daily. 0 Active nitrofurantoin, macrocrystal-mo nohydrate, (MACROBID) 100 MG CapsuleIndicati ons:Recurrent UTI Take 1 Cap by mouth as needed for Other (post coital). 30 Cap 0 Active Additional Information Patient not taking.Reported on 02/27/2020 Active Problems No known active problems Social History Tobacco Use Types Packs/Day Years Used Date Smoking Tobacco: Never Smokeless Tobacco: Never Alcohol Use Standard Drinks/Week Comments Yes 0 (1 standard drink = 0.6 oz pur e alcohol) Sexually Active Control Partners Comments Yes Male Comments No Sex and Gender Information Value Date Recorded Sex Assigned at Not on file Legal Sex Female 10:25 AM CDT Gender Identity Not on file Sexual Orientation Not on file Last Filed Vital Signs Vital Sign Reading Time Taken Comments Blood Pressure 124/68 02/27/2020 9:13 AM CDT Pulse 111 02/27/2020 9:13 AM CDT Temperature 37.1 C (98.8 F) 02/27/2020 9:13 AM CDT Respiratory Rate 14 02/27/2020 9:13 AM CDT Oxygen Saturation 97% 02/27/2020 9:13 AM CDT Inhaled Oxygen Concentration - - Weight 63.7 kg (140 lb 6.4 oz) 02/26/2020 10:56 AM CDT Height 165.1 cm (5' 5) 02/26/2020 10:56 AM CDT Body Mass Index 23.36 02/26/2020 10:56 AM CDT Plan of Treatment Health Maintenance Due Date Last Done Comments Hepatitis C Virus (HCV) Screening 1997 Human Papillomavirus (HPV) Immunization (3 - 3-dose series) 03/16/2020 12/23/2019, 12/15/2015 SARS-COV-2 Immunization ( season) 2023 05/10/2021, 08/18/2020, 07/28/2020 Influenza Immunization (Season Ended) 2024 Respiratory Syncytial Virus (RSV) Immunization (Adult) (1 - 1-dose 75+ series) 2072 Hepatitis B Immunization Completed 998, 1997, 1997 Meningococcal Immunization (ACWY) Completed 12/01/2014, 11/04/2011 DTaP/Tdap/Td Immunization Discontinued 2019, 11/15/2007, 08/06/2002, Additional history exists TdaP Immunization Completed 12/23/2019, 11/15/2007 Pneumococcal Immunization Combined Aged Out No longer eligible based on patient's age to complete this topic Rotavirus Immunization Aged Out No lo nger eligible based on patient's age to complete this topic Insurance [facility] Care Teams Access Clinician Relationship Specialty Start Date End Date Edmond Dash DO [address] , [facility] [address] [place] [address] PCP - General Family Medicine 01/18/20
--- NOTE | 2024-11-02 15:32 | ED_ITS ---
HPI - Female Genitourinary General Chief complaint: Urogenital-Female Stated complaint: UTI/STI Time Seen by Provider: 11/02/24 15:25 Source: patient Mode of arrival: ambulatory Limitations: no limitations History of Present Illness HPI Narrative: Tabitha is a 29-year-old female patient presenting to the clinic today with complaints of possible UTI/STI. She reports she has had burning, frequency, and urgency x2 days. No known fevers, chills, body aches, abdomen pain, or back pain. Is currently on her menses. No concern for . States that she would like to be checked for STIs in the clinic today. Denies any knowledge of any exposure. Is in a monogamous heterosexual relationship. Related Data Home Medications ?Medication ?Instructions ?Recorded ?Confirmed ?Last Taken ?Type No Home Medications 11/02/24 11/02/24 Unknown History Allergies Allergy/AdvReac Type Severity Reaction Status Date / Time cephalexin (From Keflex) Allergy Hives Verified 11/02/24 15:37 Review of Systems Review of Systems: Pertinent positives per HPI. Patient denies any fever, chills, rash, headache, visual changes, dizziness, cough, runny nose, sore throat, shortness of breath, chest pain, palpitations, nausea, vomiting, diarrhea, constipation, abdominal pain. PMFSH Past Medical History Medical History UTI (urinary tract infection) Surgical History Surgical History S/P wisdom tooth extraction Social History Social History Smoking status: Never smoker Comments At the time of my signature, I reviewed and agree with the nursing past medical, surgical, social, and family history. There is no relevant family history pertinent to the patient complaint. Exam Narrative: General: Well-developed, well nourished, in no apparent distress. Head: Normocephalic, atraumatic. Cardio: Regular rate and rhythm, s1 and s2 normal, no murmur appreciated. Resp: Clear to auscultation bilaterally, no rhonchi, rales, wheezing or rubs. Abdomen: Soft, pliable, bowel sounds present in all quadrants, non-tender to palpation, no organomegly, no CVAT tenderness. : Deferred Course Course Emergency Course: Portions of this record may have been created with voice recognition software. Level of Care: Express Care Visit Vital Signs Vital signs: Vital Signs Temperature 36.1 C L 11/02/24 15:34 Pulse Rate 82 11/02/24 15:34 Respiratory Rate 18 11/02/24 15:34 Blood Pressure 115/74 11/02/24 15:34 Pulse Oximetry 100 11/02/24 15:34 Oxygen Delivery Room Air 11/02/24 15:34 Temperature 36.1 C L 11/02/24 15:34 Pulse Rate 82 11/02/24 15:34 Respiratory Rate 18 11/02/24 15:34 Blood Pressure 115/74 11/02/24 15:34 Pulse Oximetry 100 11/02/24 15:34 Oxygen Delivery Room Air 11/02/24 15:34 Vital signs reviewed MDM - Female Genitourinary MDM Narrative Medical decision making narrative: At the time of visit patient is resting comfortably on the exam table. Patient appears to be nontoxic. Labs: UA positive for 1+ blood. This is likely due to patient's menses. No leukocytes, nitrates, or protein. We will send urine for culture. Trichomonas, chlamydia, gonorrhea urine testing was sent to the clinic today Plan: I suspect patient has UTI symptoms/encounter for STI testing. No known exposure to any STIs. Urinalysis negative for any sign of infection. We will send urine for culture. Will send STI testing to the lab and treat if positive. Supportive measures were discussed with the patient and they voiced understanding discharge instructions and agrees to treatment plan. Return precautions reviewed Differential Diagnosis Differential diagnosis: Likely urinary tract infection, bacterial vaginosis, trichomoniasis, cervicitis, ovarian cyst, vaginitis, ruptured ovarian cyst, cystitis and dysmenorrhea Lab Data Labs: Lab Results 11/02/24 Range/Units 15:41 POC Urine Color Dark POC Urine Clarity Clear POC Urine pH 7.0 POC Ur Specif [place] 1.025 POC Urine Protein Negative (Negative) POC Ur Glucose (UA) Negative (Negative) POC Urine Ketones Negative (Negative) POC Urine Blood 1+ (Negative) POC Urine Nitrite Negative (Negative) POC Urine Bilirubin Negative (Negative) POC Urine Urobilinogen 0.2 POC U Leukocyte Esteras Negative (Negative) Discharge Plan Discharge Clinical Impression: Symptoms of urinary tract infection, Encounter for screening examination for sexually transmitted infection Patient Disposition: Home Condition: Stable Instructions: Antibiotic Form, Sexually Transmitted Diseases (ED), Safe Sex Practices (ED), Dysuria (ED) Additional Instructions: Urinalysis positive for 1+ blood-this is likely due to your menses. No sign of bacterial infection. We will send urine for culture We have tested you for STIs in the clinic today. Avoid any sexual activity- includes oral, anal, or vaginal intercourse until you get results back and have completed any additional recommended treatment regimens. We will contact you if testing is positive and place you on appropriate treatment for the type of STI. Increase fluids and stay well hydrated Wipe front to back. May use wet wipes. Avoid tub baths If sexually active- pee before and after intercourse. Wear cotton panties Avoid tight clothing up against the genitals Follow up with your PCP in 1 week if symptoms persist. Patient Language: Montenegrin Prescriptions: No Action No Home Medications Follow-up/Referrals: Rachana,Lroe [Other] Time of Disposition: 15:44 [facility] Documentation ED NIHSS nursing documentation: reviewed/agree
[2024-11-02 15:34] VITALS: BP 115/74; PULSE 82; RESP 18; TEMP 36.1; O2SAT 100
[2024-11-02 15:43] LABS: EDUAAPPEAR Clear; EDUABILI Negative (Negative); EDUABLOOD 1+ (Negative); EDUACOLOR1 Dark; EDUAGLUCOSE Negative (Negative); EDUAKETONE Negative (Negative); EDUALEUKO Negative (Negative); EDUANITRATE Negative (Negative); EDUAPH 7.0; EDUAPROTEIN Negative (Negative); EDUASPGRAVITY 1.025; EDUAUROBILI 0.2
[2024-11-02 18:41] LABS: Trichomonas Vag PCR NOT DETECTED (NOT DETECTE)
== END 2024-11-02 15:46 | disposition home or self-care (01) ==
PROVIDERS: Emergency Provider Nurse Practitioner Family
DX: R30.0 Dysuria (principal); R35.0 Frequency of micturition; R39.15 Urgency of urination; Z11.3 Encounter for screening for infections with a predominantly sexual mode of transmission
CPT/HCPCS: 81003; 87077; 87086; 87186; 87491; 87591; 87661; 99213; G0463

== ENCOUNTER 2024-11-28 10:11 | Emergency (ER) | payer OTHER, SELFPAY ==
[2024-11-28 10:20] VITALS: BP 123/84; PULSE 92; RESP 18; TEMP 36.4; O2SAT 100
--- OUTSIDE RECORDS SUMMARY | 2024-11-28 10:24 | XMS_ITS | Clinical Summary ---
Author Organization [facility] [place] [address] [facility] lt Address [address] [place] [address] Care Team Providers Care Clinical Program Manager Name Role Phone Nava Ariza SILK SCREEN CUTTER Primary Care Provider [phone] Allergies Active Allergy Reactions Criticality Noted Date [...] on file Legal Sex Female 8:45 PM CORSETIER Gender Identity Not on file Sexual Orientation Not on file Obstetrics History Last Filed Vital Signs Vital Sign Reading Time Taken Comments Blood Pressure 112/78 05/15/2023 10:34 AM CORSETIER Pulse 104 12/23/2019 2:13 PM CDT Temperature 36.4 C (97.6 F) 05/15/2023 10:34 AM CORSETIER Respiratory Rate 16 12/23/2019 2:13 PM CDT Oxygen Saturation 99% 12/23/2019 2:13 PM CDT Inhaled Oxygen Concentration - - Weight 70.1 kg (154 lb 8 oz) 05/15/2023 10:34 AM CORSETIER Height 165.1 cm (5' 5) 05/15/2023 10:34 AM CORSETIER Body Mass Index 25.71 05/15/2023 10:34 AM CORSETIER Plan of Treatment Health Maintenance Due Date [...] [place] Care Teams Clinical Program Manager Relationship Specialty Start Date End Date Nava Ariza NP PCP - General Infectious Diseases 05/15/23
--- OUTSIDE RECORDS SUMMARY | 2024-11-28 10:24 | XMS_ITS | Clinical Summary ---
Author Organization [facility] Address [address] [place] [address] Phone Care Team Providers Care Coating Mixer Tender Name Role Phone Edmond Dash DO Primary Care Provider [phone] Allergies Active Allergy Reactions Criticality Noted Date [...] season) 2023 05/10/2021, 08/18/2020, 07/28/2020 Influenza Immunization (#1) 2024 Respiratory Syncytial Virus (RSV) Immunization (Adult) [...] patient's age to complete this topic Insurance [facility] Care Teams Coating Mixer Tender Relationship Specialty Start Date End Date Edmond Dash DO [address] , [facility] [address] [place] [address] PCP - General Family Medicine 01/18/20
--- OUTSIDE RECORDS SUMMARY | 2024-11-28 10:24 | XMS_ITS | Clinical Summary ---
Author Organization [facility] Address [address] [place] [id number] Care Team Providers Care Photographer News Name Role Phone Lore Reich MD Primary Care Provider [phone] Allergies Active Allergy Reactions Criticality Noted Date Comments Cephalexin Hives Medium 06/01/2019 Medications Multiple Vitamins-Minerals (MULTI COMPLETE OR) Active Active Problems Problem Noted Date Diagnosed Date Heart murmur, systolic 08/28/2024 Encounters Date Type Department Care Team Description 11/11/2024 11:00 AM CDT Office Visit [address] [address] Lore Reich MD Lab Results 11/11/2024 Travel 11/02/2024 Scan Kids Movie SRVCS Scanned, [facility] 10/23/2024 8:40 AM CDT Office Visit [address] [address] Lore Reich MD Lab Results 10/23/2024 Orders Only [address] [address] Lore Reich MD 10/23/2024 Travel 10/03/[address] [address] Lore Reich MD Results 09/27/2024 7:00 AM CDT - 09/27/2024 11:59 PM CDT Hospital En[facility] [place] [address] Lore Reich MD Discharge Disposition: Home or Self Care (Routine Discharge) 09/27/2024 Travel 09/12/2024 Orders Only [facility], [address] [address] Lore Reich MD 08/28/2024 10:20 AM CDT Office Visit [address] [phone] oLre Reich MD New Patient (Pt arrives today to establish care. 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 Gender Identity Not on file Sexual Orientation Not on file Last Filed Vital Signs Vital Sign Reading Time Taken Comments Blood Pressure 127/75 11/11/2024 11:00 AM CDT Pulse 83 11/11/2024 11:00 AM CDT Temperature 36.4 C (97.5 F) 11/11/2024 11:00 AM CDT Respiratory Rate 16 11/11/2024 11:00 AM CDT Oxygen Saturation 98% 11/11/2024 11:00 AM CDT Inhaled Oxygen Concentration - - Weight 67.1 kg (148 lb) 11/11/2024 11:00 AM CDT Height 165.1 cm (5' 5) 11/11/2024 11:00 AM CDT Body Mass Index 24.63 11/11/2024 11:00 AM CDT Plan of Treatment Upcoming Encounters Date Type Department Care Team (Late st Contact Info) Description 11/13/2025 8:00 AM CDT Office Visit [facility] Family Medicine [address] [phone] Lore Reich MD [address] [place] [address] Health Maintenance Due Date Last Done Comments [...] 012 Hepatitis C Completed 08/28/2024 PHQ-2 (Physician Stafford) Completed 10/23/2024 Meningococcal B Vaccine Aged Out [...] VARICELLA ZOSTER IGG (10/23/2024 10:38 AM CDT) VARICELLA ZOSTER IGG EIA 10.60 S/CO [facility] Comment: Signal to Cut-off S/CO Interpretation --------- [...] Performing Organization Information: Site ID: [place] Name: [facility] Address: [address] [place] [address] Director: Zeenat Patrick MD Lore Reich MD LABORATORY Final Result [facility] [address] [address] * USE ECHOCARDIOGRAM (09/27/2024 7:31 AM CDT) Anatomical Region Laterality Modality Cardiac Echocardiogram 09/27/2024 7:08 AM CDT Narrative 09/29/2024 6:20 AM CDT Echocardiography Report Pat.Name: TIMUR YOST.ID: [id number] .Date: 09/27/2024 Exam Time: 7:08:00 AM Study Type:ECHO WITH CARDIAC DOPPLER COMP Height: 65 in Weight: 147 lb BSA: 1.74 m2 Age: 11 1995,29Y Sex: F BP: 97/61 Sonogrphr: Kathy Severino Pat. 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 Stat.:Outpatient CPT - 4: 42802 Reason for Study:Systolic Murmur Procedures: 2D, M-mode, [...] cm Aortic Root Gilda 2.71 cm LVOT/AoV (BACK ROLL LATHE OPERATOR) ( 0.55 Left atrial gilda 2.85 cm [...] Signature> 09/29/2024 06:20 AM Fito Richard M.D. us Lore Reich MD ECHO Final Result * HEPATITIS C ANTIBODY W/RFX TO HCV RNA (08/28/2024 11:21 AM CDT) HEPATITIS C AB NON-REACT SUZIE NON-REACT SUZIE [facility] Comment: HCV antibody was non-reactive. There is no laboratory evidence of HCV infection. In most cases, no further action is required. However, if recent HCV exposure is suspected, a test for HCV RNA (test code 94747) is suggested. For additional information please refer to http://education.Sumpto/faq/CFV43c7 (This link is being provided for informational/ educational purposes only.) 08/28/2024 11:2 1 AM CDT 08/28/2024 11:23 AM CDT Narrative [facility] - [facility] - 08/29/2024 7:42 AM CDT FASTING:NO FASTING: NO Resulting Agency Comment Performing Organization Information: Site ID: [place] Name: [facility] Address: [address] [address] Director: Zeenat Patrick MD us Lore Reich MD LABORATORY Final Result [facility] [address] [address], [place] * COMPREHENSIVE METABOLIC PANEL (08/28/2024 11:21 AM CDT) GLUCOSE 80 65 - 139 mg/dL [facility] Comment: Non-fasting reference interval BUN 15 7 - 25 mg/dL [facility] CREATININE S/P/B 0.63 0.50 - 0.96 mg/dL [facility] GFR ESTIMATE 125 > OR = 60 mL/min/1. 73m2 [facility] BUN CREATININE RATIO SEE NOTE: (calc) [facility] Comment: Not Reported: BUN and Creatinine are within reference range. SODIUM S/P/B 138 135 - 146 mmol/L [facility] POTASSIUM S/P/B 4.3 3.5 - 5.3 mmol/L [facility] CHLORIDE S/P/B 103 98 - 110 mmol/L [facility] CO2 28 20 - 32 mmol/L [facility] CALCIUM S/P/B 9.8 8.6 - 10.2 mg/dL [facility] TOTAL PROTEIN S/P/B 7.4 6.1 - 8.1 g/dL [facility] ALBUMIN S/P/B 4.9 3.6 - 5.1 g/dL [facility] GLOBULIN 2.5 1.9 - 3.7 g/dL (calc) [facility] ALBUMIN/GLOBULI N RATIO 2.0 1.0 - 2.5 (calc) [facility] BILIRUBIN TOTAL S/P/B 0.5 0.2 - 1.2 mg/dL [facility] [place] ALKALINE PHOSPHATASE S/P/B 63 31 - 125 U/L [facility] AST 13 10 - 30 U/L [facility] ALT 12 6 - 29 U/L [facility] 08/28/2024 11:2 1 AM CDT 08/28/2024 11:23 AM CDT Narrative [facility] Rupal SHAY - 08/29/2024 7:42 AM CDT FASTING:NO FASTING: NO Resulting Agency Comment Performing Organization Information: Site ID: [place] Name: [facility] Address: [address] [address] Director: Zeenat Patrick MD us Lore Reich MD LABORATORY Final Result Performing Organization Address [facility]/ZIP Co de Phone Number EMMETT COLIN - CLAIRE SHAY [facility] [address] [address], [place] * (ABNORMAL) LIPID PANEL (08/28/2024 11:21 AM CDT) CHOLESTEROL 189 <200 mg/dL [facility] HDL 58 > OR = 50 mg/dL [facility] TRIGLYCERIDES 110 <150 mg/dL [facility] LDL (CALCULATED) 109(H) mg/dL (calc) [facility] Comment: Reference range: <100 Desirable range <100 mg/dL for primary prevention; <70 mg/dL for patients with CHD or diabetic patients with > or = 2 CHD risk factors. LDL-C is now calculated using the Jimmy calculation, which is a validated novel method providing better accuracy than the Friedewald equation in the estimation of LDL-C. Alejandro SS et al. NILO. 2013;310(19): 4942-1073 (http://education.Ahalogy/faq/DLJ537) CHOL/HDL RATIO 3.3 <5.0 (calc) [facility] NON HDL CHOLESTEROL 131(H) <130 mg/dL (calc) [facility] Comment: For patients with diabetes plus 1 major ASCVD risk factor, treating to a non-HDL-C goal of <100 mg/dL (LDL-C of <70 mg/dL) is considered a therapeutic option. 08/28/2024 11:2 1 AM CDT 08/28/2024 11:23 AM CDT Narrative EMMETT RANGEL ORDERS - 08/29/2024 7:42 AM CDT FASTING:NO FASTING: NO Resulting Agency Comment Performing Organization Information: Site ID: [place] Name: [facility] Address: [address] [address] Director: Zeenat Patrick MD Lore Reich MD LABORATORY Final Result Performing Organization Address City/[facility]/ZIP Co de Phone Number EMMETT SHAY [facility] [address] [place] [address], [place] * (ABNORMAL) CBC W/DIFF AUTOMATED (08/28/2024 11:21 AM CDT) WBC 7.9 3.8 - 10.8 Thousand/ uL [facility] RBC 4.65 3.80 - 5.10 Million/u L [facility] HGB 12.8 11.7 - 15.5 g/dL [facility] HCT 40.7 35.0 - 45.0 % [facility] MCV 87.5 80.0 - 100.0 fL [facility] MCH 27.5 27.0 - 33.0 pg [facility] MCHC 31.4(L) 32.0 - 36.0 g/dL [facility] Comment: For adults, a slight decrease in the calculated MCHC value (in the range of 30 to 32 g/dL) is most likely not clinically significant; however, it should be interpreted with caution in correlation with other red cell parameters and the patient's clinical condition. RDW 12.8 11.0 - 15.0 % [facility] PLT 288 140 - 400 Thousand/ uL [facility] MPV 9.4 7.5 - 12.5 fL [facility] ABS. NEUTROPHILS 5,127 1,500 - 7,800 cells/uL [facility] ABS. LYMPHOCYTES 1,967 850 - 3,900 cells/uL [facility] ABS. MONOCYTES 632 200 - 950 cells/uL [facility] ABS. EOSINOPHILS 126 15 - 500 cells/uL [facility] ABS. BASOPHILS 47 0 - 200 cells/uL [facility] SEG NEUTROPHILS 64.9 % [facility] LYMPHOCYTES 24.9 % [facility] MONOCYTES 8.0 % [facility] EOSINOPHILS 1.6 % [facility] BASOPHILS 0.6 % [facility] 08/28/2024 11:2 1 AM CDT 08/28/2024 11:23 AM CDT Narrative [facility] Rupal SHAY - 08/29/2024 7:42 AM CDT FASTING:NO FASTING: NO Resulting Agency Comment Performing Organization Information: Site ID: [place] Name: [facility] Address: [address] [place] [address] [address] [address] Director: Zeenat Patrick MD us Lore Reich MD LABORATORY Final Result [facility] [address] [address], [place] * HEMOGLOBIN, GLYCOSYLATED (08/28/2024) HGB A1C 5.2 % [facility] 08/28/2024 us Lore Reich MD LABORATORY Final Result [facility] [address] [place] [address], * COLLECT.CAPILLARY (FNGR,HEEL,EAR) (08/28/2024) us Lore Reich MD PROCEDURES-UNRESULTED Final Resu lt [facility] - [facility] ORDERS from Last 3 Months Insurance Care Teams Photographer News Relationship Specialty Start Date End Date Lore Reich MD [address] [place] [address] PCP - General FAMILY PRACTICE 08/28/24
--- OUTSIDE RECORDS SUMMARY | 2024-11-28 10:24 | XMS_ITS | Referral Summary ---
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 Gender Identity Not on file Sexual Orientation Not on file Last Filed Vital Signs Vital Sign Reading Time Taken Comments Blood Pressure 112/78 05/15/2023 10:34 AM CORE COMPOSER FEEDER Pulse 104 12/23/2019 2:13 PM CDT Temperature 36.4 C (97.6 F) 05/15/2023 10:34 AM CORE COMPOSER FEEDER Respiratory Rate 16 12/23/2019 2:13 PM CDT Oxygen Saturation 99% 12/23/2019 2:13 PM CDT Inhaled Oxygen Concentration - - Weight 70.1 kg (154 lb 8 oz) 05/15/2023 10:34 AM CORE COMPOSER FEEDER Height 165.1 cm (5' 5) 05/15/2023 10:34 AM CORE COMPOSER FEEDER Body Mass Index 25.71 05/15/2023 10:34 AM CORE COMPOSER FEEDER Plan of Treatment Not on file Procedures [...] BL CHOICE [place]F [place] Care Teams Harp Action Assembler Relationship Specialty Start Date End Date Nava Ariza NP PCP - General Infectious Diseases 05/15/23
--- NOTE | 2024-11-28 10:25 | ED_ITS ---
HPI - Female Genitourinary General Chief complaint: Urogenital-Female Stated complaint: uti Time Seen by Provider: 11/28/24 10:28 Source: patient, RN notes reviewed and old records reviewed Mode of arrival: ambulatory Limitations: no limitations History of Present Illness HPI Narrative: 29-year-old female presents to the [facility] with a 2 day history of urgency, frequency and burning. States he got worse last night. Denies fever, abdominal pain, nausea, vomiting. Denies back pain, last menstrual period 1 week ago Did take azo Related Data Allergies Allergy/AdvReac Type Severity Reaction Status Date / Time cephalexin (From Keflex) Allergy Hives Verified 11/28/24 10:29 Review of Systems Review of Systems: All systems reviewed & are unremarkable except as noted in HPI and below Constitutional: Constitutional: Reports no additional constitutional complaints ENT: Reports system reviewed and no additional complaints, except as documented Cardiovascular: Cardiovascular: Reports no additional cardiovascular complaints, Denies chest pain and Denies dyspnea Respiratory: Respiratory: Reports no additional respiratory complaints, Denies chest congestion, Denies cough and Denies dyspnea Gastrointestinal: Gastrointestinal: Reports no additional gastrointestinal complaints Genitourinary: Genitourinary: Reports as per HPI Musculoskeletal: Musculoskeletal: Reports no additional musculoskeletal complaints Integumentary/Breasts: Skin/Breast: Reports system reviewed and no additional complaints, except as docu PMFSH Past Medical History Medical History UTI (urinary tract infection) Surgical History Surgical History S/P wisdom tooth extraction Social History Social History Smoking status: Never smoker Comments At the time of my signature, I reviewed and agree with the nursing past medical, surgical, social, and family history. There is no relevant family history pertinent to the patient complaint. Exam Const: General: cooperative, healthy appearing, comfortable, no acute distress, well developed, alert and well nourished Nutritional Appearance: well nourished Orientation/consciousness: patient oriented x3 Limitations: no limitations HENMT: Head: normal to inspection Mouth: Yes Normal oral and palatal mucosa present, Yes lip normal, Yes tongue normal and Yes moist mucous membranes Eyes: General: appearance normal, both eyes and all related structures Alignment and Position: alignment normal Neck: Neck: normal visual inspection, full ROM, no lymphadenopathy and no meningeal signs Chest: Chest palpation & inspection: normal inspection of the chest Resp: Effort & Inspection: normal respiratory effort and able to speak in complete sentences Auscultation: clear to auscultation bilaterally, no crackles, no rales, no rhonchi and no wheezes Cardio: Rate: regular rate GI: GI Palp: No abdominal tenderness : General: Yes no CVA tenderness Skin: General skin exam: normal color and no rashes or lesions noted Neuro: General: patient oriented x3, gait normal, moves all extremities and no meningeal signs Cognition (Neuro): normal cognition Speech: normal speech Gait exam (Neuro): Normal gait present Extrem: General: normal to inspection, full ROM, capillary refill normal and normal gait Psych: Appearance: grossly normal and well kempt Mental Status: mental status grossly normal Speech and movement: Normal speech and movement present and Clear speech present Affect: normal affect Attitude: cooperative Course Course Level of Care: Express Care Visit Vital Signs Vital signs: Vital Signs Temperature 97.5 F L 11/28/24 10:20 Pulse Rate 92 11/28/24 10:20 Respiratory Rate 18 11/28/24 10:20 Blood Pressure 123/84 11/28/24 10:20 Pulse Oximetry 100 11/28/24 10:20 Oxygen Delivery Room Air 11/28/24 10:20 Temperature 97.5 F L 11/28/24 10:20 Pulse Rate 92 11/28/24 10:20 Respiratory Rate 18 11/28/24 10:20 Blood Pressure 123/84 11/28/24 10:20 Pulse Oximetry 100 11/28/24 10:20 Oxygen Delivery Room Air 11/28/24 10:20 Reviewed MDM - Female Genitourinary MDM Narrative Medical decision making narrative: Patient sitting in exam room. Patient is nontoxic, vitals stable. Patient with 2 day history of urinary symptoms. Had a positive E coli culture early this month. Unable to do urine dip in clinic due to taking azo Will culture based on signs symptoms will cover with Augmentin. Patient does report she has taken amoxicillin without issue even though she is allergic to cephalexin Patient appropriate for outpatient treatment with close follow-up Discharge instructions reviewed with patient, as well as provided in writing per nursing staff. The instructions also include specific and strict return/GO TO THE ER as well as f/u information. All questions have been answered, and the patient deny any further questions w ith discharge and discharge plan. Some parts of this dictation were generated by voice recognition software and may contain typographical and/or grammatical inaccuracies. Differential Diagnosis Differential diagnosis: Likely urinary tract infection and cystitis Critical Care Time Critical Care Time Critical Care Time: No Discharge Plan Discharge Clinical Impression: Urinary tract infection Qualifiers: Urinary tract infection type: site unspecified Patient Disposition: Home Condition: Stable Instructions: Antibiotic Form, Urinary Tract Infection in Women (DC) Additional Instructions: Increased water intake Take Tylenol as needed for pain Take antibiotic as prescribed Today because of the azo we were unable to run your urine, You have been prescribed an antibiotic. Your urine will be sent to our lab for a culture. If at that time a bacteria grows that is not covered by the antibiotic prescribed you will be notified. Follow-up with primary care or meters superintendent provider. Having to UTIs in 1 month it is recommended that you do follow-up. For new or worsening symptoms go directly to the emergency room Patient Language: Croatian Prescriptions: New amoxicillin-pot clavulanate 875-125 mg tablet 1 tablet PO Q12H Qty: 10 0RF Follow-up/Referrals: Rachana,Lore [Other] - 1 Week ([facility] care follow up UTI) Time of Disposition: 10:37
== END 2024-11-28 10:42 | disposition home or self-care (01) ==
PROVIDERS: Emergency Provider Nurse Practitioner
DX: N39.0 Urinary tract infection, site not specified (principal)
CPT/HCPCS: 87086; 99213; A4565; G0463